=== PATIENT | female | born 1965 | race African-American/Black ===

== ENCOUNTER 2019-09-28 14:30 | Inpatient (IN) | payer BC, OTHER ==
[~2019-09-28] VITALS: Ht 165.1 cm; Wt 69.1 kg
[2019-09-28] MEDS ORDERED: SODIUM CHLORIDE 0.9% 1,000 ML IV ONE (15:05)
[2019-09-28 15:44] LABS: BASOPHILS % 2.4 % (0.0-2.0); EOSINOPHILS % 0.9 % (0.0-5.0); HEMATOCRIT. 42.6 % (36.0-48.0); HEMOGLOBIN. 14.1 g/dL (12.0-16.0); LYMPHOCYTES % 29.9 % (20.0-50.0); MEAN CORPUSCULAR HEMOGLOBIN 28.8 pg (28.0-32.0); MEAN CORPUSCULAR VOLUME 87.2 fL (81.0-99.0); MEAN PLATELET VOLUME 7.6 fl (7.4-10.4); MONOCYTES % 5.5 % (2.0-8.0); NEUTROPHILS % 61.3 % (40.0-76.0); PLATELET 279 x1000/uL (130-400); RED BLOOD CELL COUNT 4.88 mill/uL (4.2-5.4); RED CELL DISTRIBUTION WIDTH 15.3 % (11.6-14.6)
[2019-09-28 15:49] LABS: CHLORIDE 105 mEq/L (98-107)
[2019-09-28 15:50] LABS: PROTHROMBIN TIME 10.4 sec (9.6-11.0)
[2019-09-28 15:53] LABS: ETHANOL BLOOD 256 mg/dL
[2019-09-28] MEDS ORDERED: SODIUM CHLORIDE 0.9% 1000ML BAG (SEPSIS BOLUS) IV ONE (16:15)
[2019-09-28] MEDS ORDERED: PIPERACILLIN/TAZ 3.375G PREMIX 50 ML IV NR (16:30)
[2019-09-28 16:53] LABS: CLARITY URINE CLOUDY (CLEAR); COLOR URINE YELLOW (YELLOW); KETONES URINE TRACE (NEGATIVE); LEUKOCYTE ESTERASE URINE 2+ (NEGATIVE); NITRITE URINE NEGATIVE (NEGATIVE); OCCULT BLOOD URINE NEGATIVE (NEGATIVE); PH URINE 6.5 (4.5-8.0); PROTEIN URINE NEGATIVE (NEGATIVE); SPECIFIC GRAVITY URINE 1.014 (1.005-1.030)
[2019-09-28] MEDS ORDERED: ONDANSETRON HCL 4MG/2ML INJ IV NR (17:30)
[2019-09-28] MEDS ORDERED: ONDANSETRON HCL 4MG/2ML INJ IV ONE (19:00)
[2019-09-28] MEDS ORDERED: LORAZEPAM 2MG/ML CPJ IV PRN (19:00)
[2019-09-28 20:28] LABS: PHOSPHORUS 3.3 mg/dL (2.5-4.9)
[2019-09-28 20:37] LABS: *AMPHETAMINES SCREEN URINE NEGATIVE (NEGATIVE); *BARBITURATES SCREEN URINE NEGATIVE (NEGATIVE); *BENZODIAZEPINES SCREEN URINE NEGATIVE (NEGATIVE); *COCAINE SCREEN URINE NEGATIVE (NEGATIVE); CANNABINOID URINE SCREEN PRESUMTIVE POSITIVE (NEGATIVE); METHADONE URINE SCREEN NEGATIVE (NEGATIVE); OPIATES URINE SCREEN NEGATIVE (NEGATIVE); PHENCYCLIDINE URINE SCREEN NEGATIVE (NEGATIVE)
[2019-09-28] MEDS: MVI, ADULT NO.1 10 ML, FOLIC ACID 1 MG, THIAMINE HCL 100 MG in SODIUM CHLORIDE 0.9% 1,0... IV SCH ×4 (21:05)
[2019-09-28] MEDS ORDERED: CHLORDIAZEPOXIDE 25MG CAPSULE PO NR (22:00)
[2019-09-28] MEDS: ONDANSETRON HCL 4MG/2ML INJ IV PRN (22:41)
[2019-09-28 22:50] VITALS: BP 147/91
[2019-09-29] VITALS: BP 147/91
[2019-09-29] MEDS ORDERED: AMLO5TAB4 PO (01:16)
[2019-09-29 04:00] VITALS: BP 144/87
[2019-09-29] MEDS: CHLORDIAZEPOXIDE 25MG CAPSULE PO SCH ×3 (05:38→22:00)
[2019-09-29] MEDS: ONDANSETRON HCL 4MG/2ML INJ IV PRN ×2 (05:39→11:14)
[2019-09-29 06:47] LABS: CHLORIDE 106 mEq/L (98-107)
[2019-09-29 06:56] LABS: LDL CHOLESTEROL 114 mg/dL (5-100)
[2019-09-29 06:58] LABS: HDL CHOLESTEROL 54 mg/dL (40-59)
[2019-09-29 07:02] LABS: BASOPHILS % 1.2 % (0.0-2.0); EOSINOPHILS % 0.2 % (0.0-5.0); HEMATOCRIT. 35.3 % (36.0-48.0); HEMOGLOBIN. 11.8 g/dL (12.0-16.0); LYMPHOCYTES % 24.1 % (20.0-50.0); MEAN CORPUSCULAR HEMOGLOBIN 29.1 pg (28.0-32.0); MEAN CORPUSCULAR VOLUME 86.8 fL (81.0-99.0); MEAN PLATELET VOLUME 8.2 fl (7.4-10.4); MONOCYTES % 8.1 % (2.0-8.0); NEUTROPHILS % 66.4 % (40.0-76.0); PLATELET 220 x1000/uL (130-400); RED BLOOD CELL COUNT 4.07 mill/uL (4.2-5.4); RED CELL DISTRIBUTION WIDTH 15.3 % (11.6-14.6)
[2019-09-29 08:00] VITALS: BP 146/88
[2019-09-29] MEDS ORDERED: PNEUMOCOCCAL 23-VAL P-SAC VAC 0.5 ML IM ONE (08:00)
[2019-09-29] MEDS ORDERED: INFLUENZA VIRUS VACCINE(AFLURIA) 0.5ML SYR IM ONE (10:00)
[2019-09-29] MEDS: ENOXAPARIN 40MG/0.4ML SYR SUBCUT SCH (11:14)
[2019-09-29 12:00] VITALS: BP 151/91
[2019-09-29] MEDS: AMLODIPINE 5MG TABLET PO SCH (15:53)
[2019-09-29 16:00] VITALS: BP 146/86
[2019-09-29 20:00] VITALS: BP 133/91
[2019-09-29] MEDS: AMITRIPTYLINE 10MG TABLET PO SCH (20:21)
[2019-09-29] MEDS: NYSTATIN 100,000 UNITS/GM CREAM 15GM TOP SCH (20:22)
[2019-09-29] MEDS: MVI, ADULT NO.1 10 ML, FOLIC ACID 1 MG, THIAMINE HCL 100 MG in SODIUM CHLORIDE 0.9% 1,0... IV SCH ×4 (21:00)
[2019-09-30] VITALS: BP 139/83
[2019-09-30 04:00] VITALS: BP 141/92
[2019-09-30] MEDS: CHLORDIAZEPOXIDE 25MG CAPSULE PO SCH ×3 (06:46→21:06)
[2019-09-30] MEDS: AMLODIPINE 5MG TABLET PO SCH (10:28)
[2019-09-30] MEDS: ENOXAPARIN 40MG/0.4ML SYR SUBCUT SCH (10:28)
[2019-09-30] MEDS: NYSTATIN 100,000 UNITS/GM CREAM 15GM TOP SCH ×2 (11:51→21:06)
[2019-09-30 12:00] VITALS: BP 126/83
[2019-09-30 16:00] VITALS: BP 142/84
[2019-09-30] MEDS: ONDANSETRON HCL 4MG/2ML INJ IV PRN (16:00)
[2019-09-30 20:00] VITALS: BP 145/97
[2019-09-30] MEDS: AMITRIPTYLINE 10MG TABLET PO SCH (21:06)
[2019-10-01] VITALS (7 sets, daily range): BP systolic 113–150; BP diastolic 74–102
[2019-10-01] MEDS: CHLORDIAZEPOXIDE 25MG CAPSULE PO SCH ×2 (05:49→13:27)
[2019-10-01 05:50] LABS: BASOPHILS % 1.4 % (0.0-2.0); EOSINOPHILS % 6.4 % (0.0-5.0); HEMATOCRIT. 38.9 % (36.0-48.0); HEMOGLOBIN. 12.9 g/dL (12.0-16.0); LYMPHOCYTES % 45.2 % (20.0-50.0); MEAN CORPUSCULAR HEMOGLOBIN 28.9 pg (28.0-32.0); MEAN CORPUSCULAR VOLUME 87.4 fL (81.0-99.0); MEAN PLATELET VOLUME 8.4 fl (7.4-10.4); MONOCYTES % 9.5 % (2.0-8.0); NEUTROPHILS % 37.5 % (40.0-76.0); PLATELET 178 x1000/uL (130-400); RED BLOOD CELL COUNT 4.45 mill/uL (4.2-5.4)
[2019-10-01 06:31] LABS: CHLORIDE 104 mEq/L (98-107)
[2019-10-01] MEDS: ENOXAPARIN 40MG/0.4ML SYR SUBCUT SCH (09:40)
[2019-10-01] MEDS: AMLODIPINE 5MG TABLET PO SCH (09:40)
[2019-10-01] MEDS: NYSTATIN 100,000 UNITS/GM CREAM 15GM TOP SCH (09:40)
[2019-10-01] MEDS: ONDANSETRON HCL 4MG/2ML INJ IV PRN (13:45)
[2019-10-01] MEDS ORDERED: LORAZEPAM 2MG/ML CPJ IV PRN (16:00)
[2019-10-01] MEDS ORDERED: SODIUM CHLORIDE 0.9% 1,000 ML IV SCH (17:25)
[2019-10-01] MEDS ORDERED: ATOR20TA65 MT (17:45)
[2019-10-01] MEDS ORDERED: MYCOC15 TOP (17:45)
[2019-10-01] MEDS ORDERED: AM10 PO ×2 (17:45→17:46)
[2019-10-01] MEDS ORDERED: L25 PO (17:45)
== END 2019-10-01 20:45 | disposition home or self-care (01) | DRG 897 ==
LOC: ER 14:30 → 6WST 18:39 → EDBEDREQTM 18:44 → ENRESERV 21:49
PROVIDERS: ADMIT Internal Medicine; ATTEND Internal Medicine
DX: F10.229 Alcohol dependence with intoxication, unspecified (principal); E87.2 Acidosis; R65.10 Systemic inflammatory response syndrome (SIRS) of non-infectious origin without acute organ dysfunction; R74.0 Nonspecific elevation of levels of transaminase and lactic acid dehydrogenase [LDH]; Y90.8 Blood alcohol level of 240 mg/100 ml or more; E11.8 Type 2 diabetes mellitus with unspecified complications; F41.0 Panic disorder [episodic paroxysmal anxiety]; I10 Essential (primary) hypertension
CPT/HCPCS: 36415; 71045; 80048; 80053; 80061; 80076; 80305; 80320; 81003; 82962; 83605; 83735; 84100; 84145; 84484; 85025; 90686; 90732; 93005; 93970; 99291; J1650; J2060; J2405; J2543; J3411; J3490; J7030; G0480